=== PATIENT | female | born 2000 | race African-American/Black ===

== ENCOUNTER 2020-09-27 06:26 | Emergency (ER) | payer OTHER, SELFPAY ==
[2020-09-27 06:50] VITALS: BP 133/62; PULSE 80; RESP 20; TEMP 37.6; O2SAT 100; BMI 32.8
--- NOTE | 2020-09-27 07:04 | ED_ITS ---
HPI - General Adult General Chief complaint: Upper Respiratory Symptoms Stated complaint: sore throat/head and body aches Time Seen by Provider: 09/27/20 06:43 Source: patient Mode of arrival: Ambulatory Limitations: no limitations History of Present Illness HPI narrative: Approximately 1 week ago patient started having symptoms to include body aches and a sore throat and white patches in the back of her throat. She went to the walk-in clinic and had a rapid strep performed which she was told was negative. She was not given any antibiotics. The next day symptoms seem to get a little worse so she went to an outside ER where she again had a rapid strep performed and this time it was positive. She was started on amoxicillin has been on them for the past couple days. She was also given Toradol at that time. She has not had any improvement in her symptoms despite taking the medications. She does get strep throat often. She states this was the 2nd time this year that she has had this. She is not having problems breathing or swallowing. She is here today because symptoms of just not improved. She is not having any rashes. Related Data Previous Rx's Medication Instructions Recorded azithromycin See Rx Instructions .ROUTE 09/27/20 .COMPLEX #6 tab Allergies Allergy/AdvReac Type Severity Reaction Status Date / Time No Known Drug Allergies Allergy Verified 09/27/20 07:05 Review of Systems Constitutional Constitutional: Reports body ache(s), Reports fever(s) and Reports headache(s) ENT Ears, Nose, Mouth, and Throat: Reports headache(s), Reports sore throat and Denies throat swelling Cardiovascular Cardiovascular: Denies dyspnea Respiratory Respiratory: Denies cough and Denies dyspnea Gastrointestinal Gastrointestinal: Denies vomiting Integumentary/Breasts Skin/Breast: Denies rash Neurologic Neurologic: Denies behavioral changes and Reports headache(s) Psychiatric Psychiatric: Denies behavioral changes Hematologic/Lymphatic On Anticoagulants: No Allergic/Immunologic Allergic/Immunologic: Denies urticaria and Denies throat swelling Patient History Medical History Strep throat Social History lives independently: Yes Smoking Status: Never smoker Exam Initial Vital Signs Initial Vital Signs: Vital Signs Temperature 99.6 F 09/27/20 06:50 Pulse Rate 80 09/27/20 06:50 Respiratory Rate 20 09/27/20 06:50 Blood Pressure 133/62 09/27/20 06:50 Pulse Oximetry 100 09/27/20 06:50 Const General: cooperative and comfortable Limitations: mental status not altered HENMT Head: normal to inspection and normocephalic Ears: TM's normal bilaterally Nose: external nose normal Face and sinus: normal facial exam Mouth: lip normal and tongue normal Teeth and gingiva: dentition normal Throat: abnormal tonsil bilaterally erythema and exudates, uvula not displaced and no uvular edema Eyes Visual Myers: normal visual myers by confrontation Neck Lymphatic: lymphadenopathy Resp Effort & Inspection: normal respiratory effort Auscultation: clear to auscultation bilaterally Cardio Rate: regular rate Rhythm: regular rhythm Skin Lesions: no lesions Rashes: no rashes Neuro General: patient alert and patient awake Cognition: normal cognition Speech: speech normal Extrem General: normal to inspection and capillary refill normal Psych Appearance: grossly normal and well kempt Course Orders Ordered: ED Orders 09/27/20 06:50 COVID19 -Nasal swab/Pre-Proc Stat 09/27/20 06:55 Monotest Stat Discontinued Medications Dexamethasone (Dexamethasone 10 Mg/Ml Vial) 10 mg IV NOW ONE Stop: 09/27/20 06:48 Last Admin: 09/27/20 07:05 Dose: 10 mg Documented by: MADDIE Sodium Chloride (Normal Saline 0.9%) 1,000 mls @ 1,000 mls/hr IV BOLUS ONE Stop: 09/27/20 07:46 Last Admin: 09/27/20 07:05 Dose: 1,000 mls/hr Documented by: DBROJANET Vital Signs Vital signs: Vital Signs - 8 hr 09/27/20 06:50 Temperature 99.6 F Pulse Rate 80 Respiratory Rate 20 Blood Pressure 133/62 Pulse Oximetry 100 Medical Decision Making Lab Data Lab results reviewed: Yes I reviewed the patient's lab results. Labs: Lab Results 09/27/20 09/27/20 Range/Units 06:50 06:55 SARS-CoV-2 (PCR) Negative (Negative) Monoscreen Negative (Negative) MDM Narrative Medical decision making narrative: Patient states she is currently on amoxicillin for her strep throat. She feels that things are not worsening but just not much better. Her COVID and mono are negative today. Her physical exam is not consistent with a peritonsillar abscess. I feel we can hold on any radiologic studies. She did feel somewhat better after fluids and the Decadron. I do admit that I am a little surprised that she is not improved after 4-5 days on her current antibiotic. Had a discussion with her regarding options to in clude continuing on her current antibiotic to see if she does not improve versus switching to a new antibiotic. After the discussion with the patient the plan will be is to give her a prescription for azithromycin however she is going to hold on taking this for the next 24-48 hours. If she improves during this time that she will continue on her current regiment and discard the azithromycin prescription. If she is not improving then she will switch to the azithromycin. We did discuss Tylenol/ibuprofen for fevers. We did discuss return precautions with regard to peritonsillar abscess. She expressed understanding and agreement this plan. Discharge Plan Departure Patient Disposition: Home Clinical Impression: Acute streptococcal pharyngitis Instructions: Strep Throat (Alternative Therapy), DI for Strep Throat Activity Restrictions/Additional Instructions: I recommend that you increase your fluid intake. You can take Tylenol/ibuprofen for any fever/body aches. As per our discussion continue your current antibiotic regimen for the next 24-48 hours. If you symptomatic we improved during this time then continue these antibiotics as directed and discard the prescription you were given today. If your symptoms worsen during this time or do not improve then stop taking your current antibiotics and switch to the new 1 you were given a prescription for today. Contact your primary provider for follow-up. Return to the emergency department for any new or worsening symptoms Prescriptions: New azithromycin 250 mg tablet See Rx Instructions .ROUTE .COMPLEX Qty: 6 RF: 0
[2020-09-27] MEDS: DEXAMETHASONE 10 MG/ML VIAL IV (07:05)
[2020-09-27] MEDS: SODIUM CHLORIDE 0.9% 1,000 ML 1000 ML IV (07:05)
[2020-09-27 07:16] LABS: COVID19 -Nasal RAPID Negative (Negative)
[2020-09-27 07:16] LABS: Monotest Negative (Negative)
[2020-09-27 08:05] VITALS: BP 111/62; PULSE 93; RESP 16; O2SAT 99
== END 2020-09-27 08:05 | disposition home or self-care (01) ==
PROVIDERS: Emergency Provider Emergency Medicine
DX: J02.0 Streptococcal pharyngitis (principal); Z20.822 Contact with and (suspected) exposure to COVID-19
CPT/HCPCS: 36415; 86318; 87635; 96361; 96374; 99284; C9803; J1100

== ENCOUNTER 2021-04-26 16:48 | Emergency (ER) | payer OTHER, SELFPAY ==
[2021-04-26 16:55] VITALS: BP 131/81; PULSE 83; RESP 14; TEMP 36.7; O2SAT 100; BMI 30.4
--- NOTE | 2021-04-26 17:05 | ED.URI ---
HPI - URI/Sore Throat General Chief Complaint: Upper Respiratory Symptoms Stated Complaint: sore throat, fever, stuffy nose thinks covid Time Seen by Provider: 04/26/21 16:59 Source: patient Mode of arrival: Ambulatory History of Present Illness HPI Narrative: 20-year-old female who occasionally vapes with otherwise unremarkable medical history presents with a chief complaint runny nose, nasal congestion, sore throat (worse at night than in the morning) and dry cough over the past few days. She had a fever yesterday, subjective in did not measure it. She had strep in September and states this feels slightly different. She is vaccinated against COVID. She has had no nausea, vomiting or diarrhea. She denies any difficulty in swallowing. She denies any urinary complaints. Related Data Previous Rx's Medication Instructions Recorded azithromycin 250 mg tablet See Rx Instructions .ROUTE 09/27/20 .COMPLEX #6 tab Allergies Allergy/AdvReac Type Severity Reaction Status Date / Time No Known Drug Allergies Allergy Verified 09/27/20 07:05 Review of Systems Review of Systems Narrative: GENERAL: See HPI. HEENT: See HPI RESPIRATORY: See HPI CARDIOVASCULAR: Denies chest pain, palpitations, orthopnea, edema, GASTROINTESTINAL: Denies nausea, vomiting, abdominal pain, diarrhea, constipation, melena. : Denies dysuria, frequency, incontinence, hematuria, urinary retention. MUSCULOSKELETAL: denies weakness, joint pain, or bony pain SKIN: Denies rash, skin lesions, or other NEUROLOGIC: Denies weakness, headache, numbness, change in speech, confusion, seizures, incoordination. PSYCHIATRIC: No concerning psychosocial issues. 12 point review of systems is negative except for those stated above Patient History Medical History Strep throat Social History lives independently: Yes Smoking Status: Never smoker Smoking Status: Never smoker alcohol intake frequency: holidays/special occasions only Substance Use Type: does not use Exam Narrative Exam Narrative: GEN: AOx3 and in mild distress EYES: Pupils are equal, round, and reactive to light and accommodation. Extraoccular muscles are intact bilaterally. There is no subconjunctival hemorrhage or exudate. ENT: Clear posterior pharyngeal drip, no significant erythema, tonsillar swelling or exudate. No tender lymphadenopathy. CHEST: Lungs are clear to auscultation bilaterally and free of wheezes, rales, or rhonchi. Heart rate is regular rhythm, there are no murmurs, clicks, rubs, or gallops. There is no chest wall tenderness. ABD: Abdomen is soft and nontender. There is no guarding or rebound. Bowel sounds are normal in all 4 quadrants. There is no mass or organomegaly. EXT: Full painless ROM of all extremities with no loss of sensation or strength. SKIN: Warm, pink, and dry. No erythema or rash Initial Vital Signs Initial Vital Signs: Vital Signs Temperature 98.0 F 04/26/21 16:55 Pulse Rate 83 04/26/21 16:55 Respiratory Rate 14 04/26/21 16:55 Blood Pressure 131/81 04/26/21 16:55 Pulse Oximetry 100 04/26/21 16:55 Course Orders Ordered: ED Orders 04/26/21 16:59 COVID19 -Nasal swab/Pre-Proc Stat Vital Signs Vital signs: Vital Signs - 8 hr 04/26/21 16:55 Temperature 98.0 F Pulse Rate 83 Respiratory Rate 14 Blood Pressure 131/81 Pulse Oximetry 100 MDM - URI/Sore Throat Lab Data Labs: Lab Results 04/26/21 Range/Units 16:54 SARS-CoV-2 (PCR) Negative (Negative) Point of Care Testing Rapid Strep A Negative Discharge Plan Departure Patient Disposition: Home Clinical Impression: Pharyngitis Instructions: DI for Pharyngitis/Tonsillopharyngitis -- Adult Activity Restrictions/Additional Instructions: *You have been diagnosed with [pharyngitis. Your rapid strep test and COVID were both negative. This is reassuring. Though this is most likely a viral upper respiratory infection we did obtain a throat culture which will take a few days to come back. If it results with a bacterial infection that would require an antibiotic we will call you *What to do: *Please continue to take your regular medications as directed. [ ] New medication prescriptions sent to your pharmacy: [ ] [ ] New medication written as a paper prescription [x ] No new medications given *Please follow up with your primary care provider in 2-3 days, call for an appointment. Let them know you were seen in the Emergency Department and that we ask that you be seen in follow up. We will electronically transmit a record of today's note if your PCP is in our system *If you do not have a primary care provider please contact the [facility] Resource line at [phone]. They will ask some questions about your medical history and help get you set up with a doctor in the community. *Return to Emergency Department if you should have any new, worsening or concerning symptoms, such as [fever greater than 101 F, shaking chills, worsening pain, persistent vomiting or other bothersome symptoms] Prescriptions: No Action azithromycin 250 mg tablet See Rx Instructions .ROUTE .COMPLEX Qty: 6 0RF Rx Instructions: take 500 mg today (day 1), then 250 mg for 4 days (days 2-5)
[2021-04-26 17:39] LABS: COVID19 -Nasal RAPID Negative (Negative)
== END 2021-04-26 17:50 | disposition home or self-care (01) ==
PROVIDERS: Emergency Provider Emergency Medicine
DX: J02.9 Acute pharyngitis, unspecified (principal); Z20.822 Contact with and (suspected) exposure to COVID-19
CPT/HCPCS: 87081; 87635; 87880; 99281; C9803

== ENCOUNTER 2021-05-24 17:41 | Emergency (ER) | payer BC, SELFPAY ==
[2021-05-24 18:09] VITALS: BP 140/73; PULSE 85; RESP 17; TEMP 36.4; O2SAT 100; BMI 30.7
[2021-05-24 18:35] LABS: COVID19 -Nasal RAPID POSITIVE (Negative)
--- NOTE | 2021-05-24 19:22 | ED_ITS ---
HPI - URI/Sore Throat General Chief Complaint: Upper Respiratory Symptoms Stated Complaint: cough, chest heaviness, ears are foggy Time Seen by Provider: 05/24/21 19:12 Source: patient Mode of arrival: Ambulatory History of Present Illness HPI Narrative: Patient is a 20-year-old female who presents with body aches cough is mild ear pain. She said she started having symptoms yesterday be a little bit worse today. The she actually had COVID year ago and has been vaccinated since then. She denies any significant shortness of breath. She overall appears well Related Data Home Medications Medication Instructions Recorded Confirmed No Known Home Medications 05/24/21 05/24/21 Allergies Allergy/AdvReac Type Severity Reaction Status Date / Time No Known Drug Allergies Allergy Verified 05/24/21 18:12 Review of Systems Review of Systems Narrative: GENERAL: See HPI HEENT: Denies throat pain RESPIRATORY: See HPI CARDIOVASCULAR: Denies chest pain, palpitations GASTROINTESTINAL: Denies nausea, vomiting MUSCULOSKELETAL: Denies extremity pain, injury SKIN: No rash, no laceration, no pruritus NEUROLOGIC: Denies weakness, dizziness, headache, numbness 8 point review of systems is negative except for those stated above and HPI Patient History Medical History Strep throat Social History lives independently: Yes Smoking Status: Current every day smoker Smoking Status: Current every day smoker tobacco type: vaping alcohol intake frequency: holidays/special occasions only Substance Use Type: does not use Exam Initial Vital Signs Initial Vital Signs: Vital Signs Temperature 97.6 F 05/24/21 18:09 Pulse Rate 85 05/24/21 18:09 Respiratory Rate 17 05/24/21 18:09 Blood Pressure 140/73 05/24/21 18:09 Pulse Oximetry 100 05/24/21 18:09 GENERAL: Alert well-appearing 20-year-old female in no acute distress. HEENT: Head atraumatic,EOMI, pupils reactive, face symmetric, moist mucous membranes CARDIOVASCULAR: Regular rate and rhythm without murmurs, rubs or gallops. RESPIRATORY: Breath sounds equal bilaterally, no wheezes rales or rhonchi. EXTREMITIES: Normal range of motion, no clubbing or edema. Neurovascularly intact NEUROLOGICAL: Alert and oriented x4. SKIN: Warm, dry, no laceration, no petechiae, no rashes or lesions. Course Orders Ordered: ED Orders 05/24/21 18:05 COVID19 -Nasal swab/Pre-Proc Stat Vital Signs Vital signs: Vital Signs - 8 hr 05/24/21 18:09 Temperature 97.6 F Pulse Rate 85 Respiratory Rate 17 Blood Pressure 140/73 Pulse Oximetry 100 MDM - URI/Sore Throat Lab Data Labs: Lab Results 05/24/21 Range/Units 18:05 SARS-CoV-2 (PCR) Positive H (Negative) Discharge Plan Departure Patient Disposition: Home Clinical Impression: COVID-19 Instructions: DI for COVID-19 (Suspected or Confirmed ) Activity Restrictions/Additional Instructions: * if you have not yet been vaccinated is still recommended and encouraged that you do so once your infection has passed *Follow up with your primary provider in 2-3 days or call [phone] AT HOME: -Monitor oxygen with pulse oximeter. If less than 90% for more than 1 hour p lease return to emergency department -I recommend lying on stomach for side rather than back, it has been proven to increase oxygen levels -Wash hands frequently. -Stay isolated at home please follow the isolation instructions below. -Increase fluid intake. -you may take Tylenol as directed if needed for pain or fever EMERGENCY warning signs for COVID-19: - Difficulty breathing or shortness of breath, oxygen less than 90% - Persistent pain or pressure in the chest - New confusion or inability to arouse - Bluish lips or face CDC Guidelines for home isolation: - Stay away from others - Limit contact with pets and animals: If you must care for a pet, wash your hands before and after interacting with them - Wear a mask while in public all places - Cover your mouth and nose with a tissue when you cough or sneeze. Dispose of tissues in a lined trash can and wash your hands immediately with soap and water for at least 20 seconds. If soap and water are not available, clean hands with alcohol-based hand gaming table operator that contains at least 60% alcohol. - Clean your hands often with soap and water for at least 20 seconds - Avoid touching your eyes, nose and mouth with unwashed hands - Do not share dishes, drinking glasses, cups, eating utensils, towels, or bedding with other people in your home. After using these items, wash them thoroughly with soap and water or put in the associate engineer. - Clean high-touch surfaces in your isolation area (?sick room? and bathroom) every day; let a caregiver clean and disinfect high-touch surfaces in other areas of the home. Clean the area or item with soap and water or another detergent if it is dirty. Then, use a household disinfectant. Prescriptions: No Action No Known Home Medications 0RF
== END 2021-05-24 19:27 | disposition home or self-care (01) ==
PROVIDERS: Emergency Medicine; Emergency Provider Emergency Medicine
DX: U07.1 COVID-19 (principal); F17.290 Nicotine dependence, other tobacco product, uncomplicated; Z86.16 Personal history of COVID-19
CPT/HCPCS: 87635; 99281; C9803